=== PATIENT | male | born 1960 | race Caucasian/White ===

== ENCOUNTER 2019-12-01 21:21 | Emergency (ER) | payer OTHER ==
[2019-12-01 21:37] VITALS: BP 133/82; PULSE 56; TEMP 98; BMI 29.6
[2019-12-01] MEDS ORDERED: DIPHTH,PERTUSS(ACELL),TET 0.5 ML DISP.SYRIN IM ONE ×2 (22:24→22:27)
[2019-12-01] MEDS ORDERED: AMOX TR/POT CLAV 875MG/125MG TABLETS (FP) PO ONE (22:24)
[2019-12-01] MEDS ORDERED: AMOX TR/POT CLAV 875MG/125MG TABLETS (FP) ONE (22:27)
--- NOTE | 2019-12-02 01:09 | PDOC ---
Documentation entered by Caroline Chavira SCRIBE, acting as scribe for Karrie Jernigan MD. Karrie Jernigan MD: This documentation has been prepared by the [employer] Ana, SCRIBE, under my direction and personally reviewed by me in its entirety. I confirm that the documentation accurately reflects all work, treatment, procedures, and medical decision making performed by me. History of Present Illness - General Chief Complaint: Bite Stated Complaint: DOG BITE History Source: Patient Exam Limitations: No Limitations - History of Present Illness Initial Comments: 12/01/19 21:41 Patient is a 59 year old male with a significant past medical history of HTN/HLD presents with history of dog bite to right fourth finger sustained earlier today when he was breaking up a fight between his dog and another dog. Patient reports that over the last few hours, swelling has developed in the area around the bite. He reports mild to moderate pain with movement of the finger; no fever, red streaking or other symptoms. No history of cellulitis/abscess Patient has no history of immunocompromise, poor wound healing or resistant organism infection/colonization. He is unsure of last tetanus immunization Medications as noted below Non-smoker; no daily alcohol or recreational drug use No known allergies Past History - Medical History Allergies/Adverse Reactions: Allergies Allergy/AdvReac Type Severity Reaction Status Date / Time No Known Allergies Allergy Verified 12/28/14 15:06 Home Medications: Ambulatory Orders Aspirin [Aspirin EC] 81 mg PO DAILY 12/28/14 Atorvastatin Ca [Lipitor -] 20 mg PO DAILY 12/28/14 Valsartan/Hydrochlorothiazide [Diovan Hct 160-25 mg Tablet] 1 combo PO DAILY 12/28/14 Amoxicillin/Potassium Clav [Augmentin 875-125 Tablet] 1 each PO BID #14 tablet 12/01/19 COPD: No HTN: Yes Hypercholesterolemia: Yes - Psycho-Social/Smoking History Smoking History: Never smoked Review of Systems - Review of Systems Able to Perform ROS?: Yes Comments:: 12/01/19 21:42 GENERAL/CONSTITUTIONAL: No fever or chills. No weakness. HEAD, EYES, EARS, NOSE AND THROAT: No change in vision. No ear pain or discharge. No sore throat. CARDIOVASCULAR: No chest pain, no shortness of breath, no loss of consciousness RESPIRATORY: No cough, wheezing, or hemoptysis. GASTROINTESTINAL: No nausea, vomiting, diarrhea or constipation. GENITOURINARY: No dysuria, frequency, or change in urination. MUSCULOSKELETAL: No joint or muscle swelling or pain. No neck or back pain. SKIN: No rash NEUROLOGIC: No vertigo, no change in strength/sensation. ENDOCRINE: No increased thirst. No abnormal weight change. HEMATOLOGIC/LYMPHATIC: No anemia, easy bleeding, or history of blood clots. ALLERGIC/IMMUNOLOGIC: No hives or skin allergy. *Physical Exam - Vital Signs Last Vital Signs Temp Pulse Resp BP Pulse Ox 98 F 56 L 16 133/82 100 12/01/19 21:29 12/01/19 21:29 12/01/19 21:29 12/01/19 21:29 12/01/19 21:29 - Physical Exam 12/01/19 21:42 GENERAL: Awake, alert, and fully oriented, in no acute distress. HEAD: No signs of trauma EYES: PERRLA, EOMI, sclera anicteric, conjunctiva clear ENT: Auricles normal inspection, hearing grossly normal, nares patent, oropharynx clear without exudates. Moist mucosa NECK: Nontender, no stepoffs, Normal ROM, supple, no lymphadenopathy, JVD, or masses LUNGS: Breath sounds equal, clear to auscultation bilaterally. No wheezes, and no crackles HEART: Regular rate and rhythm, normal S1 and S2, no murmurs, rubs or gallops ABDOMEN: Soft, nontender, normoactive bowel sounds. No guarding, no rebound. No masses EXTREMITIES: Right hand2 small (2 mm) nonbleeding puncture wounds palmar aspect, proximal phalanx fourth finger Mild surrounding edema; no erythema or fluctuance, no lymphangitic streaking Mild pain on active and passive flexion of the fourth finger; no distal digit or nail bed injury Remainder the extremity exam is normal NEUROLOGICAL: Cranial nerves II through XII intact. 5/5 strength and sensation in all extremities, Normal speech, normal gait, normal cerebellar function SKIN: Warm, Dry, normal turgor, no rashes or lesions noted. 0 Medical Decision Making - Medical Decision Making This 59-year-old man presents with small dog bite injury to his right fourth finger, sustained earlier today. He presents because of increased swelling in the area around the dog bite over the last few hours. No history of immunocompromise. Exam as noted above. Clinical presentation consistent with early cellulitis secondary to dog bite of the palmar aspect of the right fourth finger. Patient will be started on Augmentin 875/125 twice a day for 1 week. First dose given here in the emergency room. Because of the proximity of the wound to the flexor tendon, he is at risk for tenosynovitis. Early warning signs and symptoms discussed with the patient. He should return to the emergency room immediately if these develop. Boostrix immunization given. Patient should arrange for wound check by his PMD within the next 48 to 72 hours Discharge - Discharge Information Problems reviewed: Yes Clinical Impression/Diagnosis: Dog bite of finger Qualifiers: Encounter type: initial encounter Qualified Code(s): S61.259A - Open bite of unspecified finger without damage to nail, initial encounter; W54.0XXA - Bitten by dog, initial encounter Condition: Stable Disposition: HOME - Additional Discharge Information Prescriptions: Amoxicillin/Potassium Clav [Augmentin 875-125 Tablet] 1 each PO BID #14 tablet - Follow up/Referral - Patient Discharge Instructions Patient Printed Discharge Instructions: DI for Animal Bites Additional Instructions: Augmentin 875/125 twice a day for 1 week; take each dose with a meal Return to ER if area becomes more swollen, red, painful (especially with flexion of finger) Follow-up with your general doctor within the next 2 to 3 days for wound check - Post Discharge Activity
== END 2019-12-01 22:33 | disposition home or self-care (01) ==
LOC: FER 21:21
PROC: 3E0234Z Introduction of Serum, Toxoid and Vaccine into Muscle, Percutaneous Approach (ICD-10-PCS; principal; 2019-12-01)
DX: S61.259A Open bite of unspecified finger without damage to nail, initial encounter (principal); W54.0XXA Bitten by dog, initial encounter
CPT/HCPCS: 90715; 99284-25

== ENCOUNTER 2023-11-15 15:37 | Emergency (ER) | payer OTHER, MEDICARE ==
[2023-11-15 16:03] VITALS: BP 158/99; PULSE 69; RESP 18; TEMP 98.2; BMI 29.6
[2023-11-15] MEDS ORDERED: FAMOTIDINE 20 MG/50 ML IVPB 20 MG/50 ML MG IVPB ONE (16:55)
[2023-11-15] MEDS ORDERED: ACETAMINOPHEN INJECTION 100 ML IVPB ONE (16:55)
[2023-11-15 16:57] LABS: INR 1.11 (0.83-1.09); PROTHROMBIN TIME (PATIENT) 12.6 SEC (9.7-13.0)
[2023-11-15] MEDS: ACETAMINOPHEN 1000 MG/100 ML BAG IVPB ONE (16:58)
[2023-11-15 16:59] LABS: ACTIVATED PTT 30.3 SECONDS (25.2-36.5)
[2023-11-15 17:07] LABS: ALBUMIN 4.5 g/dl (3.4-5.0); BILIRUBIN,TOTAL 0.6 mg/dl (0.2-1); CALCIUM 9.3 mg/dl (8.5-10.1); MAGNESIUM 2.1 mg/dL (1.8-2.4)
[2023-11-15] MEDS: FAMOTIDINE 20 MG/50 ML IVPB 20 MG/50 ML MG IVPB ONE (17:19)
[2023-11-15 18:09] LABS: HEMATOCRIT 44.9 % (35.4-49); HEMOGLOBIN 13.4 G/dL (11.7-16.9); MCH 20.9 pg (25.7-33.7); MCHC 29.9 g/dl (32.0-35.9); MEAN CELL VOLUME 70.1 fl (80-96); MEAN PLT VOLUME 10.5 fl (7.5-11.1); PLATELET COUNT 169.5 10^3/uL (134-434); RBC 6.41 10^6/uL (4.00-5.60); RDW 19.1 % (11.9-15.9)
[2023-11-15 18:15] LABS: PLATELET ESTIMATE ADEQUATE
== END 2023-11-15 19:00 | disposition home or self-care (01) ==
LOC: FER 15:37
PROC: 3E033GC Introduction of Other Therapeutic Substance into Peripheral Vein, Percutaneous Approach (ICD-10-PCS; principal; 2023-11-15)
PROC: 3E033NZ Introduction of Analgesics, Hypnotics, Sedatives into Peripheral Vein, Percutaneous Approach (ICD-10-PCS; 2023-11-15)
DX: R10.13 Epigastric pain (principal)
CPT/HCPCS: 36415; 76705-TC; 80053; 83690; 83735; 85027; 85610; 85730; 86850; 86900; 86901; 96365; 96375; 99284-25; J0131

== ENCOUNTER 2024-11-10 07:44 | Emergency (ER) | payer OTHER, MEDICARE ==
[2024-11-10 07:53] VITALS: BP 145/95; PULSE 62; RESP 18; TEMP 97.8; BMI 64.7
[2024-11-10] MEDS ORDERED: ACETAMINOPHEN INJECTION 100 ML ONE (08:19)
[2024-11-10 08:24] LABS: MCHC 31.3 g/dl (32.3-36.5); MEAN CELL VOLUME 68.5 fl (79.0-92.2); MEAN PLT VOLUME 10.1 fl (9.4-12.4); RDW 17.0 % (12.2-16.4)
[2024-11-10] MEDS: ACETAMINOPHEN 1000 MG/100 ML BAG IVPB ONE (08:24)
[2024-11-10 08:49] LABS: ALK PHOS 43.0 U/L (45-117); CO2 27.0 mmol/L (21-32); CREATININE 0.9 mg/dl (0.6-1.3); GLUCOSE,RANDOM 105.0 mg/dl (74-106); SGOT/AST 26.0 U/L (15-37); SGPT/ALT 29.0 U/L (7-52); TOT PROT 6.6 g/dl (6.4-8.2)
[2024-11-10] MEDS ORDERED: AMOX TR/POT CLAV 875MG/125MG TABLETS (FP) ONE (12:23)
[2024-11-10] MEDS: AMOX TR/POT CLAV 875MG/125MG TABLETS (FP) PO ONE (12:25)
== END 2024-11-10 12:36 | disposition home or self-care (01) ==
LOC: FER 07:44
PROC: 3E033NZ Introduction of Analgesics, Hypnotics, Sedatives into Peripheral Vein, Percutaneous Approach (ICD-10-PCS; principal; 2024-11-10)
DX: K57.32 Diverticulitis of large intestine without perforation or abscess without bleeding (principal); R10.32 Left lower quadrant pain
CPT/HCPCS: 36415; 74177-TC; 80053; 81003; 83605; 83690; 85025; 87086; 99285-25; Q9967